=== PATIENT | male | born 1940 | race Caucasian/White ===

== ENCOUNTER → 2018-01-13 12:17 | Outpatient (CLI) | payer MEDICARE, BC, SELFPAY ==
--- NOTE | 2018-01-13 12:26 | XR_ITS ---
XR foot RT min 3V HISTORY: Foot pain ITS.REASON: GOUT ORDERING PHYSICIAN: Lefty Jarquin MD PATIENT AGE: 77 years COMPARISON: None FINDINGS: No fracture or dislocation. No lytic or blastic change. There is normal mineralization.. The joint spaces are well-preserved. No significant degenerative/arthritic changes. No erosive changes evident. There is a minimal amount of soft tissue calcification medial to the first metatarsophalangeal joint which may be seen with early gouty tophi. No bony erosive change. No other significant anomalies. IMPRESSION: Minimal calcification noted medial to the metatarsophalangeal joint which may be seen with gout. Please correlate with laboratory values. Otherwise negative. No erosive change evident
== END ==
PROVIDERS: PCP Family Medicine; Visit Provider Family Medicine
DX: M10.9 Gout, unspecified (principal)
CPT/HCPCS: 73630

== ENCOUNTER → 2018-04-26 15:11 | Outpatient (POV) | payer MEDICARE, BC, SELFPAY | PROVIDERS: Family Provider Family Medicine; PCP Family Medicine | DX: Z00.00 Encounter for general adult medical examination without abnormal findings (principal) ==

== ENCOUNTER → 2018-11-08 14:45 | Outpatient (POV) | payer MEDICARE, BC, SELFPAY | DX: Z00.00 Encounter for general adult medical examination without abnormal findings (principal) ==

== ENCOUNTER → 2019-05-09 12:45 | Outpatient (POV) | payer MEDICARE, BC, SELFPAY | DX: Z00.00 Encounter for general adult medical examination without abnormal findings (principal) ==

== ENCOUNTER → 2020-02-20 14:01 | Outpatient (POV) | payer MEDICARE, BC, SELFPAY | DX: Z00.00 Encounter for general adult medical examination without abnormal findings (principal) ==

== ENCOUNTER → 2020-08-27 13:13 | Outpatient (POV) | payer MEDICARE, BC, SELFPAY | DX: Z00.00 Encounter for general adult medical examination without abnormal findings (principal) ==

== ENCOUNTER → 2021-02-25 12:52 | Outpatient (POV) | payer MEDICARE, BC, SELFPAY | DX: Z00.00 Encounter for general adult medical examination without abnormal findings (principal) ==

== ENCOUNTER 2023-09-08 12:40 | Outpatient (CLI) | payer MEDICARE, BC, SELFPAY ==
--- NOTE | 2023-09-08 12:50 | ECG_ITS ---
APPROVED REPORT Exam: Resting ECG HR:63 bpm ECG Measurements Heart Rate 63 AXES TX 204 P 21 QRSd 82 QRS 28 QT 355 T 66 QTc 363 Conclusion SINUS RHYTHM WITH OCCASIONAL VENTRICULAR PREMATURE COMPLEXES NONSPECIFIC T-WAVE ABNORMALITY BORDERLINE ECG UNCONFIRMED REPORT Electronically signed by : Kaiser Zaman MD 09/09/2023 14:37:10
--- NOTE | 2023-09-08 12:54 | XR_ITS ---
FINAL REPORT TECHNIQUE: Chest PA & Lateral CLINICAL HISTORY: HYPERLIPIDEMIA COMPARISON: None FINDINGS: 2 views of the chest were performed. The heart size is normal. The mediastinum is within normal limits. There is no acute cardiopulmonary process. There are no pleural effusions. There is no pneumothorax. The bony thorax appears intact. 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 IMPRESSION: No acute cardiopulmonary process. Reviewed, Interpreted and Dictated by Shukri Mcarthur MD Transcribed by Hortencia Golden Authenticated and [facility]
== END 2023-09-08 23:59 ==
PROVIDERS: PCP Family Medicine; Visit Provider Family Medicine
DX: G62.89 Other specified polyneuropathies (principal); E78.5 Hyperlipidemia, unspecified
CPT/HCPCS: 71046; 93005

== ENCOUNTER 2024-06-25 08:35 | Outpatient (CLI) | payer MEDICARE, BC, SELFPAY ==
[2024-06-25 08:45] LABS: MANUAL DIFFERENTIAL MANUAL DIFFERENTIAL (MANUAL DIFF)
[2024-06-25 09:05] LABS: Basophils # 0.1 K/mm3 (0-0.2); Basophils % 0.9 % (0.1-2.0); Eosinophils # 0.5 K/mm3 (0.0-0.4); Eosinophils % 4.1 % (0.1-12.0); Hematocrit 44.1 % (42.0-52.0); Hemoglobin 14.7 g/dL (14.1-18.0); Lymphocytes # 5.6 K/mm3 (0.7-4.5); Lymphocytes % 50.1 % (10-50); Mean Corpuscular HGB Conc 33.5 g/dL (31.8-35.4); Mean Corpuscular Hemoglobin 31.7 pg (27.0-31.2); Mean Corpuscular Volume 94.7 fl (80-94); Mean Platelet Volume 8.5 fl (7.4-10.4); Monocytes # 0.5 K/mm3 (0.1-1.0); Monocytes % 4.5 % (1.7-9.3); Neutrophils # 4.5 K/mm3 (1.8-7.8); Neutrophils % 40.5 % (37.0-80.0); Platelet Count 223 K/mm3 (142-424); Red Blood Count 4.65 M/mm3 (4.60-6.20); Red Cell Distribution Width 13.8 % (11.5-17.5); White Blood Count 11.2 K/mm3 (4.8-10.8)
[2024-06-25 09:22] LABS: Alanine Aminotransferase 83 U/L (12-78); Albumin Level 4.6 g/dl (3.5-5.0); Alkaline Phosphatase 85 U/L (38-126); Anion Gap 12.8 mEq/L (5-15); Aspartate Amino Transferase 65 U/L (17-59); Bilirubin,Total 0.9 mg/dl (0.2-1.3); Blood Urea Nitrogen 20 mg/dl (9-20); Carbon Dioxide 29 mmol/L (22.0-30.0); Chloride 105 mmol/L (98-107); Estimated Glomerular Filt Rate 48 ml/min (>60); GFR (African American) 58 ML/MIN (>60); Globulin 2.3 g/dL (1.3-3.2); Glucose 120 mg/dl (74-100); Potassium 4.8 mmoL/L (3.5-5.1); Sodium 142 mmol/L (136-145); Total Protein,Serum 6.9 g/dl (6.3-8.2)
[2024-06-25 09:34] LABS: Hemoglobin A1C 6.4 % (4.0-6.0)
[2024-06-25 09:38] LABS: Erythrocyte Sedimentation Rate 13 mm/hr (0-20)
[2024-06-25 09:43] LABS: Lymphocytes % 50 % (10-50); Monocytes % 5 % (2-9); Neutrophils % 45 % (42-76); Platelet Estimate Normal; RBC Morphology Normal; Total Cells Counted 100
[2024-06-25 09:54] LABS: Thyroid Stimulating Hormone 1.79 uIU/mL (0.465-4.68)
[2024-06-25 10:31] LABS: Folate > 20.00 ng/mL; Vitamin B12 > 1000 pg/mL (239-931)
[2024-06-26 12:29] LABS: Anti-Centromere B Antibodies <0.2 AI (0.0-0.9); Anti-DNA (DS) Ab Qn <1 IU/mL (0-9); Anti-Jo-1 <0.2 AI (0.0-0.9); Anti-Smith Antibody <0.2 AI (0.0-0.9); Antichromatin Antibodies <0.2 AI (0.0-0.9); Antiscleroderma-70 Antibodies <0.2 AI (0.0-0.9); RNP Antibodies <0.2 AI (0.0-0.9); Sjogren's Anti-SS-A <0.2 AI (0.0-0.9); Sjogren's Anti-SS-B <0.2 AI (0.0-0.9)
[2024-06-26 15:12] LABS: Alpha-1-Globulin 0.2 g/dL (0.0-0.4); Protein, Total 7.1 g/dL (6.0-8.5)
[2024-07-11 09:05] LABS: PDF SCANNED IMAGE
== END 2024-06-25 23:59 | disposition home or self-care (01) ==
LOC: LAB 08:37
PROVIDERS: PCP Family Medicine; Visit Provider Specialist
DX: R20.0 Anesthesia of skin (principal); R20.2 Paresthesia of skin; R73.9 Hyperglycemia, unspecified; Z68.29 Body mass index [BMI] 29.0-29.9, adult; R94.4 Abnormal results of kidney function studies; R94.5 Abnormal results of liver function studies
CPT/HCPCS: 36415; 80053; 82607; 82746; 83036; 84155; 84165; 84443; 85007; 85014; 85018; 85048; 85049; 85651; 86225; 86235; 86334

== ENCOUNTER 2025-04-05 08:54 | Outpatient (CLI) | payer MEDICARE, BC, SELFPAY ==
--- OUTSIDE RECORDS SUMMARY | 2024-12-27 11:30 | XMS_ITS ---
Author Organization [place] Address [address] [facility] [address] [facility] [address] [place] [id number] Care Team Providers Care Collet Making Machine Operator Name Role Phone Bruce Jarquin Primary Care Provider Preethi Wade [phone] Allergies No Known Allergies REASON FOR VISIT ear flush Medications Medication SIG (Take, Route, Frequency, Duration) Notes Start Date End Date Status Ampicillin 500 MG 1 capsule 1 hour bef ore or 2 hours after a meal Orally every 6 hrs; Duration: 5 day(s) Active oxyBUTYnin Chloride ER 15 MG 1 tab(s) Orally once a day Active Promethazine HCl 25 MG 1 tab(s) Orally q6h prn 08/2023 Not-Taking Diphenoxylate-Atropine 2.5-0.025 MG 1 tab(s) Orally q6h prn 09/15/2023 Acti ve Diclofenac Sodium 50 MG 1 tablet as need ed Orally Twice a day; Duration: 90 days Active Famciclovir 500 MG 1 tablet Orally Twic e a day; Duration: 10 day(s) 04/17/2024 Active Atorvastatin Calcium 40 MG 1 tablet Orally QOD 09/15/2023 Active Vital Signs Weight 169.8 lbs 12/27/2024 Blood pressure systolic 128 mm Hg 12/28/19 25 Blood pressure diastolic 70 mm Hg 025 Heart Rate 48 /min 12/27/2024 Height 65 in 12/27/2024 BMI 28.25 kg/m2 12/27/2024 Encounters Encounter Location Date [place] [address] [facility] [address] [place] [id number] 12/27/2024 Preethi Crowdy Impacted cerumen, ri ght ear H61.21 ; Impacted cerumen, left ear H61.22 ; CKD stage 3a, GFR 45-59 ml/min N18.31 and Dyslipidemia E78.5 Assessments Encounter Date Diagnosis (ICD Code) Assessment Notes Treatment Notes Treatment Clinical Notes Section Notes 12/27/2024 Impacted cerumen, right ear (ICD-10 - H61.21) Ears irrigated. 12/27/2024 Impacted cerumen, left ear (ICD-10 - H61.22) 12/27/2024 CKD stage 3a, GFR 45-59 ml/min (ICD-10 - N18.31) 12/27/2024 Dyslipidemia (ICD-10 - E78.5) Plan Of Treatment Treatment Notes Assessment Notes Impacted cerumen, right ear Ears irrigat ed. Next Appt Details Follow Up: prn, Reason: Progress Notes * Darin GARCIADOB:1940 (84 yo M)Acc No.[id number]:12/27/2024 Extended Visit Patient: Darin HARDY Provider: AZRA Malhotra :1940 A ge:84 Y S ex:Male Date:12/27/2024 Address:[facility] [address], [facility], [id number] Pcp:Bruce Jarquin Subjective: * Chief Complaints: * 1 . Ear flush. * HPI: H PI: 84 year old male presents with c/o Patient is here today for?Pt sts he is here today to have his ears flushed. Pt sts he went to have his hearing changed and they would not do it as he had wax in his ears. * ROS: G ASTROENTEROLOGY: no H eartburn. n o A bdominal pain. ? M USCULOSKELETAL: no J oint swelling. n o L eg cramps. ? N EUROLOGY: no T ingling numbness. n o D izziness. ? * Medical History: D iverticulosis, BPH - follows with Dr. Hampton, Arthritis, left hip, s/p total joint replacement, Hyperlipidemia, Presbycusis -bilateral hearing aids. * Surgical History: R ight rotator cuff repair - Dr. Loredo 2001, Sigmoidoscopy with benign polyp removed 2006, C-scope/ pandiverticulosis/ Dr. Zayas 2011, left total hip arthroplasty - Dr. Benedict 10/14/2015. * Family History: N o Family History documented.. * Social History: C URRENT TOBACCO USE S moking Status: Patient does NOT smoke. C affeine: no, frequency:. Home smoke detector use: yes. Alcohol: No. * Medications: T aking Ampicillin 500 MG Capsule 1 capsule 1 hour before or 2 hours after a meal Orally every 6 hrs , Taking oxyBUTYnin Chloride ER 15 MG Tablet Extended Release 24 Hour 1 tab(s) Orally once a day , Taking Diphenoxylate-Atropine 2.5-0.025 MG Tablet 1 tab(s) Orally q6h prn , Taking Famciclovir 500 MG Tablet 1 tablet Orally Twice a day , Taking Atorvastatin Calcium 40 MG Tablet 1 tablet Orally QOD , Taking Diclofenac Sodium 50 MG Tablet Delayed Release 1 tablet as needed Orally Twice a day , Not-Taking Promethazine HCl 25 MG Tablet 1 tab(s) Orally q6h prn , Medication List reviewed and reconciled with the patient * Allergies: N .K.D.A. Objective: * Vitals: W t: 169.8, Temp: 97.6, BP: 128/70, HR: 48, Nurse: danitaz, Ht: 65, BMI:28.25. * Examination: G eneral Examination: HEENT: T M's obstructed by cerumen, once irrigated, TM's normal. Assessment: * Assessment: 1. I mpacted cerumen, right ear - H61.21 (Primary) 2 . I mpacted cerumen, left ear - H61.22 3 . C KD stage 3a, GFR 45-59 ml/min - N18.31 4 . D yslipidemia - E78.5 Plan: * Treatment: * Procedure Codes: 6 9210 EAR IRRIGATION, G2211 Complex e/m visit add on * Follow Up: p rn * Images: Billing Information: * Visit Code: 69358 Office Visit, Est Pt., Level 2. Modifiers: 25 * Procedure Codes: 58510 EAR IRRIGATION. G2211 Complex e/m visit add on. * Electronic signature of AZRA Celestin on 04/05/2025 at 08:58 AM EDT Sign off status: Pending * Provider: AZRA Malhotra Date: 0 12/27/2024 Generated for Pushpa thacker/[place] on: 0 04/05/2025 08:58 AM EDT History and Physical Notes * HPI (History of Present Illness) Category Sub-Category Detail Notes Category Not es HPI Patient is here today for Pt sts he is here today to have his ears flushed. Pt sts he went to have his hearing changed and they would not do it as he had wax in his ears Examination Category Sub-Category Detail Notes Category Not es General Examination HEENT: TM's obstruc cuca by cerumen, once irrigated, TM's normal
--- OUTSIDE RECORDS SUMMARY | 2025-01-02 06:35 | XMS_ITS ---
Author Organization [place] Address [address] [facility] 36 [facility] [address] [place] [id number] Care Team Providers Care Wireline Operator Name Role Phone Bruce Jarquin Primary Care Provider Preethi Wade [phone] Allergies No Known Allergies REASON FOR VISIT F/u on ear flush Medications Medication SIG (Take, Route, Frequency, Duration) Notes Start Date End Date Status Promethazine HCl 25 MG 1 tab(s) Orally q6h prn 08/2023 Not-Taking oxyBUTYnin Chloride ER 15 MG 1 tab(s) Orally once a day Active Ampicillin 500 MG 1 capsule 1 hour bef ore or 2 hours after a meal Orally every 6 hrs; Duration: 5 day(s) Active Famciclovir 500 MG 1 tablet Orally Twic e a day; Duration: 10 day(s) 04/17/2024 Active Diphenoxylate-Atropine 2.5-0.025 MG 1 tab(s) Orally q6h prn 09/15/2023 Acti ve Diclofenac Sodium 50 MG 1 tablet as need ed Orally Twice a day; Duration: 90 days Active Atorvastatin Calcium 40 MG 1 tablet Orally QOD 09/15/2023 Active Vital Signs Weight 168.2 lbs 01/02/2025 Blood pressure systolic 130 mm Hg 01/03/20 25 Blood pressure diastolic 78 mm Hg 025 Heart Rate 70 /min 01/02/2025 Height 65 in 01/02/2025 BMI 27.99 kg/m2 01/02/2025 Encounters Encounter Location Date Provider Diagnosis [place] [address] [facility] [address] [place] [id number] 01/02/2025 Preethi Wade Excessive cerumen in both ear canals H61.23 Assessments Encounter Date Diagnosis (ICD Code) Assessment Notes Treatment Notes Treatment Clinical Notes Section Notes 01/02/2025 Excessive cerumen in both ear canals (ICD-10 - H61.23) No wax is seen today. He should be fine for a hearing test. Plan Of Treatment Treatment Notes Assessment Notes Excessive cerumen in both ear canals No wax is seen today. He should be fine for a hearing test. Next Appt Details Follow Up: prn, Reason: Progress Notes * Darin GARCIADOB:1940 (84 yo M)Acc No.[id number]:01/02/2025 Patient: Darin HARDY Provider: AZRA Malhotra :1940 A ge:84 Y S ex:Male Date:01/02/2025 Address:[address] [place] [address] , [facility] [id number] Pcp:Bruce Jarquin Subjective: * Chief Complaints: * 1 . F/u on ear flush. * HPI: E NT/respiratory: 84 year old male presents with c/o Ear Cleaning P t presents today for a recheck on his ears. Pt sts that his ear exam is Tuesday, and he has been soaking with peroxide and wants to make sure they are cleared out before his exam. Pt sts that majority of the build up was able to be removed at his previous visit. * ROS: G ASTROENTEROLOGY: no H eartburn. [...] N .K.D.A. Objective: * Vitals: W t: 168.2, Temp: 97.8, BP: 130/78, HR: 70, Nurse: SONIA, Ht: 65, BMI:27.99. * Examination: G eneral Examination: General Appearance: N AD. H EENT: s clera and conjunctiva clear, PERRLA, TM's normal, translucent, no cerumen. Assessment: * Assessment: 1. E xcessive cerumen in both ear canals - H61.23 (Primary) Plan: * Treatment: * Procedure Codes: G 2211 Complex e/m visit add on * Follow Up: p rn * Images: Billing Information: * Visit Code: 23095 Office Visit, Est Pt., Level 3. * Procedure Codes: G2211 Complex e/m visit add on. * Electronic signature of AZRA Celestin on 04/05/2025 at 08:58 AM EDT Sign off status: Pending * Provider: AZRA Malhotra Date: 0 01/02/2025 Generated for Pushpa thacker/[place]/Melitonitting on: 0 04/05/2025 08:58 AM EDT History and Physical Notes * HPI (History of Present Illness) Category Sub-Category Detail Notes Category Not es ENT/respiratory Ear Cleaning Pt presents toda y for a recheck on his ears. Pt sts that his ear exam is Tuesday, and he has been soaking with peroxide and wants to make sure they are cleared out before his exam. Pt sts that majority of the build up was able to be removed at his previous visit Examination Category Sub-Category Detail Notes Category Not es General Examination HEENT: sclera and c onjunctiva clear, PERRLA, TM's normal, translucent, no cerumen General Appearance: NAD
--- OUTSIDE RECORDS SUMMARY | 2025-04-04 11:00 | XMS_ITS ---
Author Organization [place] Address [address] [facility] 36 [facility] [address] [place] [phone] Care Team Providers Care Third Officer Name Role Phone Bruce Jarquin Primary Care Provider [phone] Allergies No Known Allergies REASON FOR VISIT bowel issues and numbness Medications Medication SIG (Take, Route, Frequency, Duration) Notes Start Date End Date Status Amoxicillin 500 MG 1 capsule Orally 3 times a day; Duration: 10 days 01/17/2025 Not-Taking Promethazine HCl 25 MG 1 tab(s) Orally q6h prn 08/2023 Not-Taking Atorvastatin Calcium 40 MG 1 tablet Orally QOD 09/15/2023 Active Diclofenac Sodium 50 MG 1 tablet as need ed Orally Twice a day; Duration: 90 days Active Famciclovir 500 MG 1 tablet Orally Twic e a day; Duration: 10 day(s) 04/17/2024 Active oxyBUTYnin Chloride ER 15 MG 1 tab(s) Orally once a day Active Diphenoxylate-Atropine 2.5-0.025 MG 1 tab(s) Orally q6h prn 09/15/2023 Acti ve Problems Problem Type SNOMED Code ICD Code Onset Dates Problem Status W/U Status Risk Notes Problem Vitamin D deficiency (E55.9) Active confirmed Vital Signs Weight 170.4 lbs 04/04/2025 Blood pressure systolic 120 mm Hg 04/04/20 25 Blood pressure diastolic 70 mm Hg 025 Heart Rate 90 /min 04/04/2025 Height 65 in 04/04/2025 BMI 28.35 kg/m2 04/04/2025 Encounters Encounter Location Date Provider Diagnosis [place] [address] [facility] 36 [facility] [address] [place] [phone] 04/04/2025 Bruce Jarquin Vitamin D deficiency E55.9 ; Peripheral neuropathy G62.9 and Hyperglycemia R73.9 Assessments Encounter Date Diagnosis (ICD Code) Assessment Notes Treatment Notes Treatment Clinical Notes Section Notes 04/04/2025 Vitamin D deficiency (ICD-10 - E55.9) 04/04/2025 Peripheral neuropathy (ICD-10 - G62.9) 04/04/2025 Hyperglycemia (ICD-10 - R73.9) Plan Of Treatment No Information Progress Notes * DENYS DarinDOB:1940 (84 yo M)Acc No.[id number]:04/04/2025 Progress Notes Patient: Darin HARDY Provider: Bruce Jarquin M.D. :1940 A ge:84 Y S ex:Male Date:04/04/2025 Address:[address] [place] [address] , [place], [id number] Subjective: * Chief Complaints: * 1 . Bowel issues and numbness. * HPI: G astroenterology: Denies : Nausea. D enies : Vomiting. Pt is here today with c/o having bowel issues and numbness. * ROS: G ASTROENTEROLOGY: no H eartburn. [...] yes. Alcohol: No. * Medications: T aking oxyBUTYnin Chloride ER 15 MG Tablet Extended [...] needed Orally Twice a day , Not-Taking Amoxicillin 500 MG Capsule 1 capsule Orally 3 times a day , Not-Taking Promethazine HCl 25 MG Tablet 1 tab(s) Orally q6h prn , Medication List reviewed and reconciled with the patient * Allergies: N .K.D.A. Objective: * Vitals: W t: 170.4, Temp: 97.9, BP: 120/70, HR: 90, Nurse: danitza, Ht: 65, BMI:28.35. Assessment: * Assessment: 1. V itamin D deficiency - E55.9 (Primary) 2 . P eripheral neuropathy - G62.9 3 . H yperglycemia - R73.9 Plan: * Treatment: * Images: Billing Information: * Visit Code: * Procedure Codes: * Electronic signature of Bruce Jarquin MD on 04/05/2025 at 08:57 AM EDT Sign off status: Pending * Provider: Bruce Jarquin M.D. Date: 04/04/2025 Generated for Sultanai kedar/[place]/eTransmitting on: 04/05/2025 08:57 AM EDT History and Physical Notes * HPI (History of Present Illness) Category Sub-Category Detail Notes Category Not es Gastroenterology Vomiting Pt is here today with c/o having bowel issues and numbness Nausea
--- OUTSIDE RECORDS SUMMARY | 2025-04-05 08:58 | XMS_ITS | Patient Health Record ---
Author Organization [facility] Address [address] [facility] 36 [facility] [address] [place] [phone] Care Team Providers Care Compotype Operator Name Role Phone Bruce Jarquin Primary Care Provider Aspen Neno Unavailable [phone] MundoPreethi monge Unavailable [phone] Allergies No Known Allergies Results Component Value Reference Range Notes P-Uric Acid Reviewed date:04/24/2024 03:10:07 PM Interpretation: Performing Lab: Notes/Report: Test performed by [email or web address] [address] [place] [address] , [address], [place] [address] Ronal Flynn MD, Stationary Equipment Mechanic CLIA: [id number] Uric Acid 5.6 3.4-8.0 mg/dL P-Lipid Panel Reviewed date:04/24/2024 03:10:07 PM Interpretation: Performing Lab: Notes/Report: Test performed by [email or web address] [address] [place] [address] , [address], [place] [address] Ronal Flynn MD, Stationary Equipment Mechanic CLIA: [id number] Cholesterol 109 <200 mg/dL Triglycerides 129 <150 mg/dL HDL Cholesterol 36 >39 mg/dL Cholesterol / HDL Ratio 3.03 0.00-4.99 Ratio Non-HDL Cholesterol 73 <130 mg/dL LDL Cholesterol (Calculation) 47 <130 mg/dL LDL Cholesterol Levels* Less than 100 mg/dL Optimal 100 to 129 mg/dL Near Optimal/ Above Optimal 130 to 159 mg/dL Borderline High 160 to 189 mg/dL High 190 mg/dL and above Very High * Categories as recommended by the 2004 ATPIII guidelines LDL/HDL Ratio 1.3 <3.3 Ratio LDL Cholesterol Patient History Test Date: 09/08/2023 LDL Results: 147 Units: mg/dL % Change: - Test Date: 04/18/2024 LDL Results: 47 Units: mg/dL % Change: -68% P-Comprehensive Metabolic Pa wayne (CMP) Reviewed date:04/24/2024 03:10:07 PM Interpretation: Performing Lab: Notes/Report: Test performed by [facility] [address] [facility] , [address], [place] [address] Ronal Flynn MD, Stationary Equipment Mechanic CLIA: [id number] Sodium 142 135-145 mmol/L Potassium 4.8 3.5-5.3 mmol/L Chloride 105 97-108 mmol/L CO2 25 22-32 mmol/L Glucose 122 65-99 mg/dL BUN 24 8-23 mg/dL Creatinine 1.52 0.70-1.30 mg/dL Calcium 10.1 8.6-10.4 mg/dL eGFR by Creatinine 44 >59 mL/min/1.73m2 Protein 6.6 6.0-8.3 g/dL Albumin 4.3 3.5-5.3 g/dL Alkaline Phosphatase 81 40-129 IU/L ALT (SGPT) 98 <5-55 IU/L AST (SGOT) 58 <5-46 IU/L Bilirubin, Total 0.4 <0.2-1.2 mg/dL A/G Ratio 1.9 1.1-2.5 Glycohemoglobin A1c (in hous e) Reviewed date:04/24/2024 03:10:07 PM Interpretation:6.2 Performing Lab: Notes/Report: 6.2 glycohemoglobin 6.2% 5 - 6.5 % CBC Venipuncture (in house) Reviewed date:04/24/2024 03:10:07 PM Interpretation: Performing Lab: Notes/Report: wbc 10.8 3.5 - 10 lymph 48.5% 15 - 50 mid 6.6% 2 - 15 gran 44.9% 35 - 80 rbc 4.25 3.5 - 5.5 hgb 13.1 11.5 - 16.5 hct 39.0 35 - 55 mcv 91.9 75 - 100 mch 30.9 25 - 35 mchc 33.7 31 - 38 platlet 180 100 - 400 Medications Medication SIG (Take, Route, Frequency, Duration) [...] tab(s) Orally q6h prn 09/15/2023 Acti ve Immunizations Vaccine Route Administration Date Status Comme nts Prevnar (PCV20) IM Intramuscular 09/28/2022 Administered Fluzone High Dose (65yr and older) IM Intramuscular 08/24/2019 Administered Fluzone High Dose (65yr and older) IM Intramuscular 06/13/2020 Administered Fluzone High Dose (65yr and older) IM Intramuscular 05/25/2021 Administered Fluzone High Dose (65yr and older) IM Intramuscular 06/24/2022 Administered Fluzone High Dose (65yr and older) IM Intramuscular 07/19/2023 Administered Fluzone High Dose (65yr and older) IM Intramuscular 06/11/2024 Administered COVID 19 Pfizer Unknown 09/10/2020 Administered COVID 19 Pfizer Unknown 04/22/2021 Administered Problems Problem Type SNOMED Code ICD Code Onset Dates Problem Status W/U Status Risk Notes Problem Overactive bladder (491946614) Overactive bladder (N32.81) Active confirmed Problem Vitamin D deficiency (87299449) Vitamin D deficiency (E55.9) Active confirmed Problem Peripheral neuropathy (622554830) Peripheral neuropathy (G62.9) Active confirmed Problem Generalized osteoarthritis (235790799) 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) Active confirmed Problem Podagra (08053955) Podagra (M10.9) Active confirmed Problem Dyslipidemia (053860515) Dyslipidemia (E78.5) Active confirmed Problem Lower urinary tract symptoms due to benign prostatic hypertrophy (35667324526323) Benign prostatic hyperplasia with lower urinary tract symptoms (N40.1) Active confirmed Problem Status post hip hemiarthroplasty (Z96.649) Active confirmed Problem Chronic kidney disease stage 3A (disorder) (272217581) CKD stage 3a, GFR 45-59 ml/min (N18.31) Active confirmed Vital Signs Heart Rate 90 /min 04/04/2025 Blood pressure diastolic 70 mm Hg 04/04/2025 Height 65 in 04/04/2025 Blood pressure systolic 120 mm Hg 04/04/2025 Weight 170.4 lbs 04/04/2025 BMI 28.35 kg/m2 04/04/2025 Encounters Encounter Location Date Provider Diagnosis [facility] [address] [facility] [address] [place], [place] [id number] 04/17/2024 Bruce Jarquin Dyslipidemia E78.5 ; Peripheral neuropathy G62.9 ; Hyperglycemia R73.9 ; CKD stage 3a, GFR 45-59 ml/min N18.31 ; Fever blister B00.1 and Podagra M10.9 [facility] [address] [place], [place] [id number] 04/18/2024 R Mark Milka Podagra M10.9 ; Dyslipidemia E78.5 ; Peripheral neuropathy G62.9 ; Hyperglycemia R73.9 and CKD stage 3a, GFR 45-59 ml/min N18.31 [facility] [address] [facility] [address] [place], [place] [id number] 06/11/2024 Neno Milan Encounter for immunization Z23 [facility] [address] [facility] [address] [place], [place] [id number] 12/27/2024 Preethi Crowdy Impacted cerumen, ri ght ear H61.21 ; Impacted cerumen, left ear H61.22 ; CKD stage 3a, GFR 45-59 ml/min N18.31 and Dyslipidemia E78.5 [facility] [address] [facility] [address] [place], [place] [id number] 01/02/2025 Preethi Crowdy Excessive cerumen in both ear canals H61.23 [facility] [address] [facility] [address] [place], [place] [id number] 04/04/2025 R Mark Milka Vitamin D deficiency E55.9 ; Peripheral neuropathy G62.9 and Hyperglycemia R73.9 [facility] [address] [facility] [address] [place], [place] [id number] 04/24/2024 R Mark Milka Dyslipidemia E78.5 [facility] [address] [facility] [address] [place] [id number] 09/17/2024 R Mark Milka [facility] [address] [place] [id number] 10/17/2024 R Mark Milka [facility] [address] [place], [place] [id number] 01/16/2025 R Mark Milka [facility] [address] [facility] [address] [place], [place] [id number] 01/17/2025 R Mark Milka Assessments Encounter Date Diagnosis (ICD Code) Assessment Notes Treatment Notes Treatment Clinical Notes Section Notes 04/17/2024 Peripheral neuropathy (ICD-10 - G62.9) 04/17/2024 Dyslipidemia (ICD-10 - E78.5) 04/24/2024 Dyslipidemia (ICD-10 - E78.5) 06/11/2024 Encounter for immunization (ICD-10 - Z23) 12/27/2024 Impacted cerumen, right ear (ICD-10 - H61.21) Ears irrigated. 12/27/2024 Impacted cerumen, left ear (ICD-10 - H61.22) 04/18/2024 Podagra (ICD-10 - M10.9) 04/18/2024 Dyslipidemia (ICD-10 - E78.5) 01/02/2025 Excessive cerumen in both ear canals (ICD-10 - H61.23) No wax is seen today. He should be fine for a hearing test. 04/04/2025 Vitamin D deficiency (ICD-10 - E55.9) 04/04/2025 Peripheral neuropathy (ICD-10 - G62.9) 12/27/2024 CKD stage 3a, GFR 45-59 ml/min (ICD-10 - N18.31) 04/04/2025 Hyperglycemia (ICD-10 - R73.9) 04/18/2024 Peripheral neuropathy (ICD-10 - G62.9) 04/17/2024 Hyperglycemia (ICD-10 - R73.9) 04/17/2024 CKD stage 3a, GFR 45-59 ml/min (ICD-10 - N18.31) 04/18/2024 Hyperglycemia (ICD-10 - R73.9) 12/27/2024 Dyslipidemia (ICD-10 - E78.5) 04/18/2024 CKD stage 3a, GFR 45-59 ml/min (ICD-10 - N18.31) 04/17/2024 Fever blister (ICD-10 - B00.1) 04/17/2024 Podagra (ICD-10 - M10.9) Plan Of Treatment No Information Insurance Providers Payer Name Payer Address Payer Phone Subscriber Number Group Number Insured Name Patient Relationship to Insured Coverage Start Date Coverage End Date MEDICARE PART B [address] [address] [place] [address] [id number] Darin Garcia Self - patient is the insured [facility] [address] [place] [address] [id number] Darin Garcia Self - patient is the insured Medical (General) History Medical History History ICD Code Diverticulosis BPH - follows with Dr. Hampton Arthritis, left hip, s/p total joint rep lacement Hyperlipidemia Presbycusis -bilateral hearing aids Surgical History Surgery Date(Month/Year) Right rotator cuff repair - Dr. Loredo 2 002 Sigmoidoscopy with benign polyp removed 2006 C-scope/ pandiverticrachell/ Dr. Zayas 2011 left total hip arthroplasty - Dr. Shay s 10/14/2015
--- OUTSIDE RECORDS SUMMARY | 2025-04-05 08:58 | XMS_ITS | Clinical Summary ---
Author Organization [facility] [place] Address [address] [place] [address] Care Team Providers Care Mask Designer Name Role Phone Lefty Jarquin MD Primary Care Provider Allergies No known active allergies Medications aspirin 81 MG EC tablet Take 81 mg by mouth Daily. Active diclofenac (VOLTAREN) 50 MG EC tablet Take 50 mg by mouth 2 (Two) Times a Day As Needed. Active Active Problems No known active problems Immunizations Immunization Administration Dates Next Due Pneumococcal, Unspecified 12/07/2016(Deferred: O ther - not given) Tetanus Toxoid, Unspecified 12/07/2016(D eferred: Other - not sure of date given) Family History Medical History Relation Name Comments Diabetes Brother Heart attack Father Stroke Father Osteoarthritis Mother Stroke Mother Diabetes Sister Relation Name Status Comments Brother Father Mother Sister Social History Tobacco Use Types Packs/Day Years Used Date Smoking Tobacco: Never Smokeless Tobacco: Never Alcohol Use Standard Drinks/Week Comments No 0 (1 standard drink = 0.6 oz pur e alcohol) Abuse Screen Answer Date Recorded Unsafe at Home or Work/School Not on file Feels Threatened by Someone? Not on file 06/2023 Does Anyone Keep You from Co ntacting Others or Doint Things Outside the Home? Not on file 05/25/2023 Physical Sign of Abuse Present Not on file 1 Housing Stability Answer Date Recorded Current Living Arrangements Not on file 05/15 Potentially Unsafe Housing Conditions Not on manuel e 05/25/2023 Family and Community Support Answer Luis Manuel e Recorded Help with Day-to-Day Activities Not on file 05/25/2023 Lonely or Isolated Not on file 05/25/2023 Employment Answer Date Recorded Do you want help finding or keeping work or a tin b? Not on file 05/25/2023 Disabilities Answer Date Recorded Concentrating, Remembering, or Making Decisions Difficulty Not on file 05/25/2023 Doing Errands Independently Difficulty Not on fi le 05/25/2023 Education Answer Date Recorded Help with school or training? Not on file Preferred Language Not on file 05/25/2023 Sex and Gender Information Value Date Recorded Sex Assigned at Not on file Legal Sex Male 8:47 AM EST Gender Identity Not on file Sexual Orientation Not on file Last Filed Vital Signs Vital Sign Reading Time Taken Comments Blood Pressure 134/81 12/07/2016 8:56 AM EDT Pulse 56 12/07/2016 8:56 AM EDT Temperature - - Respiratory Rate - - Oxygen Saturation - - Inhaled Oxygen Concentration - - Weight 78.2 kg (172 lb 6.4 oz) 12/05/2018 9:46 A M EDT Height 165.1 cm (5' 5 ) 12/05/2018 9:46 AM EDT Body Mass Index 28.69 12/05/2018 9:46 AM EDT Plan of Treatment Health Maintenance Due Date Last Done Comments TDAP/TD VACCINES (1 - Tdap) 1959 Pneumococcal Vaccine 50+ (1 of 1 - PCV) 1988 ZOSTER VACCINE (1 of 2) 1988 RSV Vaccine - Adults (1 - 1-dose 75+ series) 3 ANNUAL PHYSICAL 11/26/2016 COVID-19 Vaccine (1 - 2023- season) 2024 INFLUENZA VACCINE 05/15/2025 Insurance MEDICARE A & B [facility] SUPP Care Teams Mask Designer Relationship Specialty Start Date End Date Lefty Jarquin MD [facility] [address] [address] [place] [address] PCP - General 10/02/15
[2025-04-05 09:49] LABS: Albumin Level 4.7 g/dl (3.5-5.0); Potassium 5.1 mmoL/L (3.5-5.1); Sodium 143 mmol/L (136-145)
[2025-04-05 09:52] LABS: Alanine Aminotransferase 123 U/L (12-78); Albumin/Globulin Ratio 1.9 (1.1-1.8); Alkaline Phosphatase 95 U/L (38-126); Aspartate Amino Transferase 94 U/L (17-59); Bilirubin,Total 0.7 mg/dl (0.2-1.3); Blood Urea Nitrogen 27 mg/dl (9-20); Calcium 10.4 mg/dl (8.4-10.2); Carbon Dioxide 27 mmol/L (22.0-30.0); Cholesterol 132 mg/dl (140-200); Creatinine,Serum 1.30 mg/dl (0.66-1.25); Estimated Glomerular Filt Rate 52 ml/min (>60); GFR (African American) 63 ML/MIN (>60); Globulin 2.5 g/dL (1.3-3.2); Glucose 118 mg/dl (74-100); Total Protein,Serum 7.2 g/dl (6.3-8.2); Triglycerides 131 mg/dl (30-150)
[2025-04-05 09:53] LABS: HDL Cholesterol 37 mg/dl (40-60)
[2025-04-05 10:04] LABS: Anion Gap 16.1 mEq/L (5-15); Chloride 105 mmol/L (98-107)
[2025-04-05 10:14] LABS: Hemoglobin A1C 6.4 % (4.0-6.0)
[2025-04-05 10:26] LABS: 25-OH Vitamin D, Total 44.6 ng/mL (30-100)
== END 2025-04-05 23:59 | disposition home or self-care (01) ==
LOC: LAB 08:56
PROVIDERS: PCP Family Medicine; Visit Provider Family Medicine
DX: R73.9 Hyperglycemia, unspecified (principal); E78.5 Hyperlipidemia, unspecified; Z12.5 Encounter for screening for malignant neoplasm of prostate; E55.9 Vitamin D deficiency, unspecified
CPT/HCPCS: 36415; 80053; 80061; 82306; 83036; G0103

== ENCOUNTER 2025-06-26 07:09 | Day surgery (SDC) | payer MEDICARE, BC, SELFPAY ==
--- NOTE | 2025-06-23 11:10 | EXP.HP ---
History of Present Illness *Admission Date: 06/26/25 *History of present illness: Mr. Garcia is an 84-year-old gentleman who is here for diagnostic colonoscopy secondary to a change in bowel habits and a decrease in his stool caliber. He is last colonoscopy was in 2011 and was reportedly normal. The examination is deemed medically necessary for diagnostic colonoscopy. The patient has been seen, interviewed and examined prior to the procedure by both myself and the anesthesia provider. [facility] Disclaimer: The information contained in this section may have been updated after the patient was seen, as this information can be updated by other users. Medical History History of BPH History of diverticulosis History of arthritis History of kidney disease History of hyperlipidemia Surgical History History of colonoscopy History of repair of rotator cuff History of left knee replacement Family History Other No significant family history Social History Smoking Status: Never smoker alcohol intake: never substance use type: denies use current occupational status: retired Travel in the last 8 weeks?: Inside the [place] household members: spouse housing: house marital status: number of children: 2 caffeine: Yes Have you lived/traveled outside US in past 30 days?: No Contact w/someone who lives/traveled outside US past 30 days?: No Exposure to someone with infectious disease in past 14 days?: No Do you have a fever (greater than 100.4 F or 38 C)?: No Have you tested positive for COVID-19?: No Exposed to someone with COVID-19 in past 14 days?: No Do you have a sore throat?: No Do you have a cough?: No Do you have any weakness?: No Do you have any diarrhea?: No Are you experiencing any unusual bleeding?: No Do you have any muscle aches/pain?: No Do you have any abdominal pain?: No Are you experiencing loss of taste or smell?: No Other Medical History Have you received the Pneumonia Vaccine: Yes Review of Systems Review of Systems Review of systems (narrative): Negative *Cardiovascular Comments: Negative *Gastrointestinal Comments: Negative *Genitourinary Comments: Negative *Musculoskeletal Comments: Negative *Neurologic Comments: Negative Meds Home Medications and Allergies Home Medications ?Medication ?Instructions ?Recorded ?Confirmed ?Type atorvastatin 40 mg tablet 40 mg PO HS 06/11/24 06/26/25 History diclofenac sodium 50 mg 50 mg PO Q12H PRN Pain 06/11/24 06/26/25 History tablet,delayed release oxybutynin chloride 15 mg 15 mg PO DAILY 06/11/24 06/26/25 History tablet,extended release 24 hr vitamins A,C,F-hfwj-juwkvi 4,296 1 cap PO BID 06/11/24 06/26/25 History [id number] mg-90 mg capsule (PreserVision AREDS) New Prescriptions to Start Prescriptions: Allergies Allergy/AdvReac Type Severity Reaction Status Date / Time No Known Allergies Allergy Verified 06/26/25 07:56 Exam *Routine HEENT Exam Head: Present normocephalic Eye: Present EOMI and PERRL ENT: Present mucous membranes moist *Routine Neck Exam Neck: Present supple *Routine Respiratory Exam Respiratory: Present CTA bilaterally *Routine Cardiovascular Exam Cardiovascular: Present RRR *Routine Abdominal Exam Abdominal: Present soft and normoactive bowel sounds; Absent tenderness *Routine Rectal Exam Rectal:: deferred *Routine Genitalia Exam Genitalia:: deferred *Routine Extremities Exam Extremities: Absent cyanosis, clubbing or edema *Routine Skin Exam Skin: Present warm; Absent rash *Routine Neurological Exam Neurological: Present alert and oriented X3 Assessment and Plan *Assessment and plan (1) Change in bowel habits: Status: Acute Category: Medical Code(s): R19.4 - Change in bowel habit (2) Decreased stool caliber: Status: Acute Category: Medical Code(s): R19.5 - Other fecal abnormalities Plan A/P: 1. Change in bowel habits with decreased stool caliber is the preprocedural diagnosis. The patient will be anesthetized/sedated using MAC sedation. The patient has been seen and examined. Cardiac and lung assessment prior to the examination is stable. Proceed with planned diagnostic colonoscopy.
[2025-06-24 11:55] VITALS: BMI 25.8
--- NOTE | 2025-06-26 06:58 | P.PCN_ITS ---
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 This has corrected and he now has more regular bulky bowel movements. He reports no abdominal pain, weight loss, rectal bleeding or family history of colon cancer. His last colonoscopy was in 2011 and was reportedly normal except for a very small benign polyp and diverticulosis. The examination is deemed medically necessary for diagnostic colonoscopy. Procedure: Prior to the procedure, a history and physical exam was performed, and patient's medications and allergies were reviewed. The risks, benefits and alternatives of the sedation and procedure were discussed with the patient. All questions were answered and informed consent was obtained. The patient was brought to the procedure room. Patient identification and proposed procedure were verified by the physician and the nurse. The patient was placed in a left lateral decubitus position and the scope was passed under direct vision. Throughout the procedure, the patient's blood pressure, pulse, and oxygen saturations were citlaly tored continuously. The colonoscopy was accomplished without difficulty. The patient tolerated the procedure well. Findings: On digital rectal examination there was very mild anal fibrotic stenosis with normal rectal tone. There were no external hemorrhoids but very small tags. The prostate was 2+, mildly firm but symmetric without nodules. The colonoscope was introduced through the anal canal to the rectum and advanced to the cecum. The ileocecal valve and appendiceal orifice were identified. The scope was advanced a short distance into the ileum which appeared grossly normal. The scope was then withdrawn into the colon. There was a single flat 5 mm cecal polyp removed via cold snare polypectomy. The remaining cecum, ascending and transverse colon and mucosa were grossly normal. There were scattered diverticuli throughout the descending and sigmoid colon (LEFT colon). The rectum itself was normal. Upon retroflexion within the rectum there were grade 2 internal hemorrhoids. The preparation was excellent throughout with Gilbert Preparation Score of 9. The cecal time was 14 minutes. Impression: 1. Diminutive cecal polyp 2. Left-sided diverticulosis 3. Grade 2 internal hemorrhoids 4. 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 I would encourage psyllium bulking fiber supplementation on a maintenance basis.
[2025-06-26 07:57] VITALS: BP 139/79; PULSE 70; RESP 16; TEMP 36.2; O2SAT 94
[2025-06-26] MEDS: LACTATED RINGERS 1000ML 1,000 ML 50 ML IV (08:06)
--- NOTE | 2025-06-26 08:51 | EXP.ANES.CKL ---
[facility] Disclaimer: The information contained in this section may have been updated after the patient was seen, as this information can be updated by other users. Medical History History of BPH History of diverticulosis History of arthritis History of kidney disease History of hyperlipidemia Surgical History History of colonoscopy History of repair of rotator cuff History of left knee replacement Family History Other No significant family history Social History Smoking Status: Never smoker alcohol intake: never substance use type: denies use current occupational status: retired Travel in the last 8 weeks?: [place] the [place] household members: spouse housing: house marital status: number of children: 2 caffeine: Yes Have you lived/traveled outside [place] in past 30 days?: No Contact w/someone who lives/traveled outside US past 30 days?: No Exposure to someone with infectious disease in past 14 days?: No Do you have a fever (greater than 100.4 F or 38 C)?: No Have you tested positive for COVID-19?: No Exposed to someone with COVID-19 in past 14 days?: No Do you have a sore throat?: No Do you have a cough?: No Do you have any weakness?: No Do you have any diarrhea?: No Are you experiencing any unusual bleeding?: No Do you have any muscle aches/pain?: No Do you have any abdominal pain?: No Are you experiencing loss of taste or smell?: No [facility] Anesthesia Checklist Patient Identification Patient Identification: Arm Band Structural Data Admitted From: Home Planned Operative Procedure/s: Colonoscopy Consent for Planned Operative Procedure(s) Verified: Yes Verified Documents: Surgical Consent and History and Physical NPO Status Verified Time NPO: 04:30 (finished prep) Additional verifications Anesthesia Reactions: No Airway Assessment Mallampati Score:: Class II C-Spine Mobility Assessed: Yes TMJ Mobility Assessed: Yes Dentition: Good Dentition Neurological Assessment Level of Consciousness: Awake, Alert and Appropriate Anesthesia Plan Anesthesia Risk discussed: Yes Anesthesia Plan: Verified ASA Class: II Anesthesia Type: MAC
[2025-06-26 09:23] VITALS: BP 122/48; PULSE 76; RESP 18; TEMP 36.1; O2SAT 97
[2025-06-26 09:33] VITALS: BP 104/58; PULSE 62; RESP 18; O2SAT 98
[2025-06-26 09:43] VITALS: BP 134/67; PULSE 56; RESP 18; O2SAT 100
[2025-06-26 09:53] VITALS: BP 125/71; PULSE 59; RESP 16; O2SAT 100
== END 2025-06-26 09:56 | disposition home or self-care (01) ==
PROVIDERS: PCP Family Medicine; Visit Provider Internal Medicine Gastroenterology
PROC: 0DJD8ZZ Inspection of Lower Intestinal Tract, Via Natural or Artificial Opening Endoscopic (ICD-10-PCS; CPT 45378; principal; 2025-06-26 09:00)
DX: D12.0 Benign neoplasm of cecum (principal); K62.4 Stenosis of anus and rectum; K57.30 Diverticulosis of large intestine without perforation or abscess without bleeding; K64.1 Second degree hemorrhoids; E78.5 Hyperlipidemia, unspecified; M19.90 Unspecified osteoarthritis, unspecified site; Z86.0109 Personal history of other colon polyps
CPT/HCPCS: 45385; 88305; J2003; J2704; J7120

== ENCOUNTER 2025-07-24 08:23 | Outpatient (CLI) | payer MEDICARE, BC, SELFPAY ==
[2025-07-24 10:25] LABS: Alanine Aminotransferase 51 U/L (12-78); Albumin Level 4.7 g/dl (3.5-5.0); Albumin/Globulin Ratio 1.8 (1.1-1.8); Alkaline Phosphatase 102 U/L (38-126); Anion Gap 15.6 mEq/L (5-15); Aspartate Amino Transferase 54 U/L (17-59); Bilirubin,Total 0.7 mg/dl (0.2-1.3); Blood Urea Nitrogen 26 mg/dl (9-20); Calcium 10.1 mg/dl (8.4-10.2); Carbon Dioxide 26 mmol/L (22.0-30.0); Chloride 107 mmol/L (98-107); Cholesterol 121 mg/dl (140-200); Creatinine,Serum 1.50 mg/dl (0.66-1.25); Estimated Glomerular Filt Rate 44 ml/min (>60); GFR (African American) 54 ML/MIN (>60); Globulin 2.6 g/dL (1.3-3.2); Glucose 109 mg/dl (74-100); HDL Cholesterol 38 mg/dl (40-60); Potassium 4.6 mmoL/L (3.5-5.1); Sodium 144 mmol/L (136-145); Total Protein,Serum 7.3 g/dl (6.3-8.2); Triglycerides 165 mg/dl (30-150)
[2025-07-24 14:22] LABS: Hemoglobin A1C 6.0 % (4.0-6.0)
== END 2025-07-24 23:59 | disposition home or self-care (01) ==
LOC: LAB 08:24
PROVIDERS: PCP Family Medicine; Visit Provider Family Medicine
DX: E78.5 Hyperlipidemia, unspecified (principal); E11.9 Type 2 diabetes mellitus without complications; N18.31 Chronic kidney disease, stage 3a
CPT/HCPCS: 36415; 80053; 80061; 83036